=== PATIENT | male | born 1985 | race Two or more races ===

== ENCOUNTER 2018-03-28 16:56 | Emergency (ER) | payer SELFPAY ==
[~2018-03-28] VITALS: Ht 177.8 cm; Wt 75.0 kg
[2018-03-28 17:01] VITALS: BP 121/86
== END 2018-03-28 19:47 | disposition left against medical advice (07) ==
LOC: ER 16:56
DX: Z53.21 Procedure and treatment not carried out due to patient leaving prior to being seen by health care provider (principal)